=== PATIENT | female | born 1995 | race Caucasian/White ===

== ENCOUNTER 2018-05-07 15:18 | Observation (INO) ==
[2018-05-07] MEDS ORDERED: Ondansetron 4 MG/2 ML VIAL IVP ONE ×2 (15:55→20:24)
[2018-05-07] MEDS ORDERED: 0.9 % Sodium Chloride 1,000 ML IVC ONE (15:55)
[2018-05-07] MEDS ORDERED: Isovue-370 500 ML BOTTLE IVP ONE (16:03)
--- NOTE | 2018-05-07 16:09 | Emergency Department Note ---
Disposition Clinical Impression: Appendicitis Disposition: Admitted As Inpatient Condition: Good Forms: ED Satisfaction Letter, Work/School Release Time of Disposition: 18:53 General Adult HPI - General Chief complaint: ED Abdominal Pain Stated complaint: abd pain/Dizzy/back pain Time Seen by Provider: 05/07/18 15:52 Source: patient Limitations: no limitations Nursing Notes Reviewed: Yes Vital Signs Reviewed: Yes - History of Present Illness HPI Narrative: 23 year old female presnets to the ED with complaints of abdominal pain in the lower abdomen that radaites into her back and states that she has a history of endometriosis and that she has not otherwis ehad an suergies aside from the laser ablation suergies that she intermittently has. Patient is curled up in the posisiton and states she can no long vomit anymore and is now just vomtting up clear mucus fluid. PAtinet states that this has been going on since yesrterday and that it hasnt stopped. PAtient appears to have dry heaves at bedside. She denies chest pain, or blood in her urine or stool. No vaginal bleeding or discharge. No fevers, not been around anyone else that has bee sick, also no suspicious food ingestion Pain Scale: 9 - Related Data Allergies Allergy/AdvReac Type Severity Reaction Status Date / Time clindamycin AdvReac Palpitation Verified 05/07/18 15:43 s Penicillins AdvReac See Verified 05/07/18 15:43 Comments Constitutional: Denies: fever, chills, weakness, weight change Eyes: Denies: eye pain, eye discharge, vision change ENT ED: Denies: ear pain, throat pain, dental pain, hearing loss, epistaxis, congestion, dysphagia Cardiovascular: Denies: chest pain, palpitations, dyspnea on exertion, edema, syncope Respiratory: Denies: cough, dyspnea, wheezes, hemoptysis, stridor Gastrointestinal: Reports: abdominal pain, nausea, vomiting. Denies: diarrhea, constipation, hematemesis, melena, hematochezia Genitourinary: Denies: dysuria, frequency, hematuria, discharge Musculoskeletal: Denies: back pain, neck pain, arthralgia, myalgia Integumentary: Denies: rash, abrasion, lesions Neurological: Denies: headache, weakness, numbness, paresthesias, confusion, abnormal gait, vertigo Psychiatric: Denies: anxiety, depression, suicidal thoughts, homicidal thoughts, auditory hallucinations, visual hallucinations Endocrine: Denies: fatigue Hematological/Lymphatic: Denies: easy bleeding, easy bruising Allergic/Immunologic: Denies: facial swelling, urticaria Past Medical History - Past Medical History Medical history: Reports: other - Social History Smoking Status: Current some day smoker Smokeless Tobacco Status: No Alcohol use: Reports: occasionally Drug use: Reports: none Physical Exam - General Limitations: no limitations General appearance: alert, in no apparent distress - Head Head exam: atraumatic, normocephalic, normal inspection - Eye Eye exam: Present: normal appearance, PERRL, EOMI - Expanded Eye Exam Pupils: Bilateral: reactive - ENT ENT exam: normal exam, normal oropharynx, mucous membranes moist - Expanded ENT Exam External ear exam: Present: normal external inspection Mouth exam: Present: normal external inspection Teeth exam: Present: normal inspection Throat exam: Present: normal inspection - Neck Neck exam: Present: normal inspection, full ROM, trachea midline - Chest Chest inspection: Present: normal inspection, symmetric chest wall rise - Respiratory Respiratory exam: Present: normal lung sounds bilaterally - Cardiovascular Cardiovascular exam: Present: regular rate, normal rhythm, normal heart sounds - Abdominal Exam Abdominal exam: Present: soft, tenderness. Absent: Non-Tender, distention, guarding, rebound, rigidity Abdominal tenderness: Present: suprapubic, moderate - Extremities Exam Extremities exam: Present: normal inspection, full ROM. Absent: tenderness, pedal edema - Expanded Upper Extremity Exam Shoulder exam: Present: normal inspection, full ROM Arm exam: Present: normal inspection, full ROM Elbow exam: Present: normal inspection, full ROM Forearm/Wrist exam: Present: normal inspection, full ROM Hand exam: Present: normal inspection, full ROM Vascular exam: Normal: capillary refill, radial pulse - Expanded Lower Extremity Exam Hip/Pelvis exam: Present: normal inspection, full ROM Upper leg exam: Present: normal inspection, full ROM Knee exam: Present: normal inspection, full ROM Lower leg exam: Present: normal inspection, full ROM Ankle exam: Present: normal inspection, full ROM Foot/toe exam: Present: normal inspection, full ROM Neurovascular/Tendon exam: Absent: motor deficit, sensory deficit, tendon deficit - Back Exam Back exam: Present: normal inspection, full ROM. Absent: tenderness - Neurological Exam Neurological exam: Present: alert, oriented X3 - Expanded Neurological Exam Patient oriented to: Present: person, place, time Coma Scale Eye Opening: Spontaneous Coma Scale Motor Response: Obeys Commands Coma Scale Verbal Response: Oriented Coma Scale Total: 15 - Psychiatric Psychiatric exam: Present: normal affect, normal mood - Skin Skin exam: Present: warm, dry, intact, normal color Course Course Narrative: I will do labs, ABCT, and UA/preg with IVF and benadryl/zofran for therpay - Consultations Consultation #1: discusssed case with Dr. Hawkins and he will come to bedside to josh take back to the OR Time: 18:53 Vital Signs Temperature 97.8 F 05/07/18 15:41 Pulse Rate 81 05/07/18 15:41 Respiratory Rate 20 05/07/18 15:41 Blood Pressure 127/79 05/07/18 15:41 O2 Sat by Pulse Oximetry 98 05/07/18 15:41 Temperature 97.8 F 05/07/18 15:41 Pulse Rate 83 05/07/18 18:44 Respiratory Rate 15 05/07/18 18:44 Blood Pressure 131/78 05/07/18 18:44 O2 Sat by Pulse Oximetry 98 05/07/18 16:24 Oxygen Delivery Oxygen Delivery Room Air Medical Decision Making - Lab Data Result diagrams: 05/07/18 14:12 05/07/18 14:12 Lab Results 05/07/18 05/07/18 05/07/18 Range/Units 14:12 14:12 17:28 WBC 12.7 H (4.3-11.1) K/mcL RBC 4.36 (3.82-4.97) M/mcL Hgb 13.6 (11.5-15.4) g/dL Hct 40.2 (35.3-44.9) % MCV 92.2 (83.0-100.0) fL MCH 31.2 (28.0-33.3) pg MCHC 33.8 (31.6-35.5) g/dL RDW 12.3 (11.5-14.5) % Plt Count 225 (140-400) K/mcL MPV 11.8 (9.4-12.4) fL Immature Gran % 0.5 (0-4) % Seg Neutrophils % 83.2 % Lymphocytes % 11.1 % Monocytes % 4.8 % Eosinophils % 0.2 % Basophils % 0.2 % Neutrophils # 10.5 H (1.6-8.9) K/mcL Lymphocytes # 1.4 (0.6-4.6) K/mcL Monocytes # 0.6 (0.0-1.3) K/mcL Eosinophils # 0.0 (0.0-0.6) K/mcL Basophils # 0.0 (0.0-0.2) K/mcL Sodium 137 (136-145) mEq/L Potassium 3.6 (3.5-5.1) mEq/L Chloride 103 (98-107) mEq/L Carbon Dioxide 25 (23-29) mEq/L BUN 13 (6-20) mg/dL Creatinine 0.68 (0.60-1.20) mg/dL Est GFR ( Amer) > 60 (> 60) Est GFR (Non-Af Amer) > 60 (> 60) BUN/Creatinine Ratio 19 (6-26) Glucose 117 H (70-105) mg/dL Calculated Osmolality 285 (280-300) Calcium 9.6 (8.6-10.3) mg/dL Total Bilirubin 0.3 (0.3-1.0) mg/dL Direct Bilirubin 0.1 (0.0-0.2) mg/dL Indirect Bilirubin 0.2 (0.0-1.2) mg/dL AST 18 (13-39) Units/L ALT 13 (7-52) Units/L Alkaline Phosphatase 36 (34-104) Units/L Serum Total Protein 7.3 (6.4-8.9) g/dL Albumin 4.7 (3.5-5.7) g/dL Globulin 2.6 (2.4-3.5) g/dL Albumin/Globulin Ratio 1.8 (1.1-2.2) Lipase 10 L (11-82) Units/L Urine Color Yellow (Yellow) Urine Clarity Cloudy A (Clear) Urine pH 8.0 (5.0-8.0) pH Units Ur Specific [place] 1.024 (1.010-1.025) Urine Protein 30 H (Neg-Trace) mg/dL Urine Glucose (UA) Normal (Normal) mg/dL Urine Ketones Trace H (Negative) mg/dL Urine Blood Negative (Negative) Urine Nitrite Negative (Negative) Urine Bilirubin Negative (Negative) Urine Urobilinogen Normal (Normal) mg/dL Ur Leukocyte Esterase Negative (Negative) Urine Microscopic RBC 0-3 (0-3) per hpf Urine Microscopic WBC 0-3 (0-3) per hpf Ur Squamous Epith Cells Many H (None-Few) per lpf Urine Bacteria Few (None-Few) per hpf Hyaline Casts None Seen (None-Few) per lpf Ur Culture Indicated? NO (NO) Urine Test (Negative) 05/07/18 Range/Units 17:28 WBC (4.3-11.1) K/mcL RBC (3.82-4.97) M/mcL Hgb (11.5-15.4) g/dL Hct (35.3-44.9) % MCV (83.0-100.0) fL MCH (28.0-33.3) pg MCHC (31.6-35.5) g/dL RDW (11.5-14.5) % Plt Count (140-400) K/mcL MPV (9.4-12.4) fL Immature Gran % (0-4) % Seg Neutrophils % % Lymphocytes % % Monocytes % % Eosinophils % % Basophils % % Neutrophils # (1.6-8.9) K/mcL Lymphocytes # (0.6-4.6) K/mcL Monocytes # (0.0-1.3) K/mcL Eosinophils # (0.0-0.6) K/mcL Basophils # (0.0-0.2) K/mcL Sodium (136-145) mEq/L Potassium (3.5-5.1) mEq/L Chloride (98-107) mEq/L Carbon Dioxide (23-29) mEq/L BUN (6-20) mg/dL Creatinine (0.60-1.20) mg/dL Est GFR ( Amer) (> 60) Est GFR (Non-Af Amer) (> 60) BUN/Creatinine Ratio (6-26) Glucose (70-105) mg/dL Calculated Osmolality (280-300) Calcium (8.6-10.3) mg/dL Total Bilirubin (0.3-1.0) mg/dL Direct Bilirubin (0.0-0.2) mg/dL Indirect Bilirubin (0.0-1.2) mg/dL AST (13-39) Units/L ALT (7-52) Units/L Alkaline Phosphatase (34-104) Units/L Serum Total Protein (6.4-8.9) g/dL Albumin (3.5-5.7) g/dL Globulin (2.4-3.5) g/dL Albumin/Globulin Ratio (1.1-2.2) Lipase (11-82) Units/L Urine Color (Yellow) Urine Clarity (Clear) Urine pH (5.0-8.0) pH Units Ur Specific [place] (1.010-1.025) Urine Protein (Neg-Trace) mg/dL Urine Glucose (UA) (Normal) mg/dL Urine Ketones (Negative) mg/dL Urine Blood (Negative) Urine Nitrite (Negative) Urine Bilirubin (Negative) Urine Urobilinogen (Normal) mg/dL Ur Leukocyte Esterase (Negative) Urine Microscopic RBC (0-3) per hpf Urine Microscopic WBC (0-3) per hpf Ur Squamous Epith Cells (None-Few) per lpf Urine Bacteria (None-Few) per hpf Hyaline Casts (None-Few) per lpf Ur Culture Indicated? (NO) Urine Test Negative (Negative)
[2018-05-07 16:46] LABS: Basophils % 0.2 %; Eosinophils % 0.2 %; Hematocrit 40.2 % (35.3-44.9); Hemoglobin 13.6 g/dL (11.5-15.4); Immature Granulocytes % 0.5 % (0-4); Lymphocytes # 1.4 K/mcL (0.6-4.6); Lymphocytes % 11.1 %; Mean Corpuscular HGB Conc 33.8 g/dL (31.6-35.5); Mean Corpuscular Hemoglobin 31.2 pg (28.0-33.3); Mean Corpuscular Volume 92.2 fL (83.0-100.0); Mean Platelet Volume 11.8 fL (9.4-12.4); Monocytes # 0.6 K/mcL (0.0-1.3); Monocytes % 4.8 %; Neutrophils # 10.5 K/mcL (1.6-8.9); Platelet Count 225 K/mcL (140-400); Red Blood Count 4.36 M/mcL (3.82-4.97); Red Cell Distribution Width 12.3 % (11.5-14.5); Segmented Neutrophils % 83.2 %
[2018-05-07 17:02] LABS: Alanine Aminotransferase 13 Units/L (7-52); Albumin 4.7 g/dL (3.5-5.7); Albumin/Globulin Ratio 1.8 (1.1-2.2); Alkaline Phosphatase 36 Units/L (34-104); Aspartate Amino Transferase 18 Units/L (13-39); BUN/Creatinine Ratio 19 (6-26); Bilirubin,Direct 0.1 mg/dL (0.0-0.2); Bilirubin,Indirect 0.2 mg/dL (0.0-1.2); Bilirubin,Total 0.3 mg/dL (0.3-1.0); Blood Urea Nitrogen 13 mg/dL (6-20); Calcium 9.6 mg/dL (8.6-10.3); Carbon Dioxide 25 mEq/L (23-29); Chloride 103 mEq/L (98-107); Globulin 2.6 g/dL (2.4-3.5); Glucose 117 mg/dL (70-105); Lipase 10 Units/L (11-82); Osmolality,Calculated 285 (280-300); Potassium 3.6 mEq/L (3.5-5.1); Sodium 137 mEq/L (136-145); Total Protein 7.3 g/dL (6.4-8.9); eGFR For Non-African Americans > 60 (> 60)
[2018-05-07] MEDS ORDERED: *HR* FentaNYL (PF) 100 MCG/2 ML VIAL IVP ONE (17:36)
[2018-05-07 17:55] LABS: Bilirubin,Urine Negative (Negative); Blood,Urine Negative (Negative); Clarity,Urine Cloudy (Clear); Color,Urine Yellow (Yellow); Glucose,Urine (UA) Normal (Normal); Ketones,Urine Trace mg/dL (Negative); Leukocyte Esterase,Urine Negative (Negative); Nitrite,Urine Negative (Negative); Protein,Urine 30 mg/dL (Neg-Trace); Specific Gravity,Urine 1.024 (1.010-1.025); Urobilinogen,Urine Normal (Normal)
[2018-05-07 18:01] LABS: Bacteria,Urine Few per hpf (None-Few); Hyaline Casts,Urine None Seen per lpf (None-Few); RBC,Urine 0-3 per hpf (0-3); Squamous Epithelial Cell,Urine Many per lpf (None-Few); WBC,Urine 0-3 per hpf (0-3)
[2018-05-07] MEDS ORDERED: *HR* Morphine 2 MG/ML SYRINGE IVP ONE ×2 (19:08→20:15)
--- NOTE | 2018-05-07 19:56 | General Surg History&Physical ---
Date of Encounter: 05/07/18 Time of Encounter: 19:40 Assessment and Plan (1) Appendicitis Current Visit: Yes Status: Acute The assessment and plan as outlined above was discussed with the patient and/or family members who expressed understanding and agreement. All questions were answered. Acute appendicitis with leukocytosis and abnormal CAT scan. We will plan laparoscopic appendectomy later this evening. I discussed the risks and benefits with the patient and her family. She understands and wishes to proceed. Qualifiers: Appendicitis type: acute appendicitis Acute appendicitis type: with localized peritonitis Appendicitis gangrene presence: unspecified whether gangrene present Appendicitis perforation presence: without perforation Appendicitis abscess presence: without abscess Qualified Code(s): K35.30 - Acute appendicitis with localized peritonitis, without perforation or gangrene History of Present Illness Chief complaint: Abdominal pain HPI: Ms. Concepcion is a 23 year old female Who is had abdominal pain last night and today. This started as nausea and vomiting was centralized abdominal pain and then localized right lower quadrant. She has prominent anorexia. She has been treated with pain medicine prior to evaluation. The patient and her family helped shared to give me the history. She is quite concerned that she has previously had 4 laparoscopic procedures for endometriosis and endometrial scarring I personally reviewed CAT scan of the abdomen. She has several appendicoliths a thickened appendix wall and periappendiceal inflammation consistent with acute appendicitis. Past Med Surg Social Fam HX - Past Medical History Medical history: other Additional medical history: endometreosis - Past Surgical History Surgical History: other (Multiple laparoscopic procedures for endometriosis) Additional surgical history: laser sx for endometreosis - Social History Smoking Status: Current some day smoker Smokeless Tobacco Status: No Alcohol use: occasionally Drug use: none Medications and Allergies Dicyclomine [Bentyl] 10 mg PO QID PRN 05/07/18 [History] Loratadine [Allergy Relief] 10 mg PO DAILY 05/07/18 [History] Multivits Min/Iron/FA/Herb#186 [Hair, Skin & Nails Caplet] 1 each PO DAILY 05/07/18 [History] Norethindrone-E.estradiol-Iron [Junel Fe 1 mg-20 Mcg Tablet] 1 each PO DAILY 05/07/18 [History] Allergy/AdvReac Type Severity Reaction Status Date / Time clindamycin AdvReac Palpitation Verified 05/07/18 15:43 s Penicillins AdvReac See Verified 05/07/18 15:43 Comments Review of Systems All systems PM: The remainder of the systems were reviewed and are negative General Surgery Exam Initial Vital Signs Temp Pulse Resp BP Pulse Ox 97.8 F 81 20 127/79 98 05/07/18 15:41 05/07/18 15:41 05/07/18 15:41 05/07/18 15:41 05/07/18 15:41 - General physical appearance well developed, well nourished, moderate distress, moderate pain - Respiratory normal expansion, normal respiratory effort, clear to percussion, clear to auscultation - Cardiovascular Cardiovascular exam: Present: RRR, no murmurs/rubs/gallops - Abdomen Abdomen general surgery: Present: tender, guarding, rebound Abdominal Tenderness: Present: RLQ - Neurologic Present: CN 2-12 grossly intact, normal coordination, normal sensation - Psychiatric Psychiatric general surgery: Present: appropriate, oriented to person, oriented to place, oriented to time, speech is normal, memory intact Results - Labs 05/07/18 14:12 05/07/18 14:12 Abnormal lab results WBC 12.7 K/mcL (4.3-11.1) H 05/07/18 14:12 Neutrophils # 10.5 K/mcL (1.6-8.9) H 05/07/18 14:12 Glucose 117 mg/dL (70-105) H 05/07/18 14:12 Lipase 10 Units/L (11-82) L 05/07/18 14:12 Urine Clarity Cloudy (Clear) A 05/07/18 17:28 Urine Protein 30 mg/dL (Neg-Trace) H 05/07/18 17:28 Urine Ketones Trace mg/dL (Negative) H 05/07/18 17:28 Ur Squamous Epith Cells Many per lpf (None-Few) H 05/07/18 17:28 Diabetes panel 05/07/18 Range/Units 14:12 Sodium 137 (136-145) mEq/L Potassium 3.6 (3.5-5.1) mEq/L Chloride 103 (98-107) mEq/L Carbon Dioxide 25 (23-29) mEq/L BUN 13 (6-20) mg/dL Creatinine 0.68 (0.60-1.20) mg/dL Glucose 117 H (70-105) mg/dL Calcium 9.6 (8.6-10.3) mg/dL AST 18 (13-39) Units/L ALT 13 (7-52) Units/L Alkaline Phosphatase 36 (34-104) Units/L Albumin 4.7 (3.5-5.7) g/dL Calcium panel 05/07/18 Range/Units 14:12 Calcium 9.6 (8.6-10.3) mg/dL Albumin 4.7 (3.5-5.7) g/dL Pituitary panel 05/07/18 Range/Units 14:12 Sodium 137 (136-145) mEq/L Potassium 3.6 (3.5-5.1) mEq/L Chloride 103 (98-107) mEq/L Carbon Dioxide 25 (23-29) mEq/L BUN 13 (6-20) mg/dL Creatinine 0.68 (0.60-1.20) mg/dL Glucose 117 H (70-105) mg/dL Calcium 9.6 (8.6-10.3) mg/dL Adrenal panel 05/07/18 Range/Units 14:12 Sodium 137 (136-145) mEq/L Potassium 3.6 (3.5-5.1) mEq/L Chloride 103 (98-107) mEq/L Carbon Dioxide 25 (23-29) mEq/L BUN 13 (6-20) mg/dL Creatinine 0.68 (0.60-1.20) mg/dL Glucose 117 H (70-105) mg/dL Calcium 9.6 (8.6-10.3) mg/dL Total Bilirubin 0.3 (0.3-1.0) mg/dL AST 18 (13-39) Units/L ALT 13 (7-52) Units/L Alkaline Phosphatase 36 (34-104) Units/L Albumin 4.7 (3.5-5.7) g/dL All other labs normal. - Imaging CT scan - abdomen: image reviewed (I personally reviewed the CAT scan of the abdomen. She does have several appendicoliths and appendix wall thickening and periappendiceal inflammation. Findings could conceivably be from endometriosis, however, this clinical setting [place] of acute appendicitis is made)
[2018-05-07] MEDS ORDERED: *HR* Cisatracurium 10 MG/5 ML VIAL IV ONE (20:10)
[2018-05-07] MEDS ORDERED: Acetaminophen IV 1,000 MG/100 ML INFUS..BTL ONE (20:11)
[2018-05-07] MEDS ORDERED: Dexamethasone 4 MG/ML VIAL ONE (20:12)
[2018-05-07] MEDS ORDERED: Lidocaine -MPF 2% 2 ML VIAL ONE (20:12)
[2018-05-07] MEDS ORDERED: *HR* Succinylcholine 200 MG/10 ML VIAL IVP ONE (20:12)
[2018-05-07] MEDS ORDERED: *HR* FentaNYL (PF) 100 MCG/2 ML VIAL ONE (20:12)
[2018-05-07] MEDS ORDERED: Ondansetron 4 MG/2 ML VIAL ONE (20:12)
[2018-05-07] MEDS ORDERED: *HR* Midazolam HCl 2 MG/2 ML VIAL ONE (20:12)
[2018-05-07] MEDS ORDERED: *HR* Propofol 200 MG/20 ML VIAL IVP ONE (20:12)
[2018-05-07] MEDS ORDERED: CefOXitin 2,000 MG VIAL ONE (20:16)
[2018-05-07] MEDS ORDERED: CefOXitin 1,000 MG VIAL ONE (20:23)
[2018-05-07] MEDS ORDERED: *HR* HYDROmorphone (PF) 1 MG/ML SYRINGE IVP PRN (20:24)
[2018-05-07] MEDS ORDERED: *HR* OxyCODONE Immed Rel 5 MG TABLET PO PRN (20:24)
--- NOTE | 2018-05-07 20:24 | Anesthesia Evaluation PreOp ---
Date of Encounter: 05/07/18 Time of Encounter: 20:23 - Past History Planned Operation: Laparoscopic Appendectomy Cardiac History: Denies any Significant Hx Pulmonary History: Smoker (2 years) THERAPIST SPEECH History: Denies Any Significant HX Other Medical History: Denies Any Significant HX Anesthesia History: No Prior Anesthetic Complications, Past Anesthesia Test: Negative (05/07/2018) Alcohol Use: occasionally Drug use: none Medications and Allergies Dicyclomine [Bentyl] 10 mg PO QID PRN 05/07/18 [History] Loratadine [Allergy Relief] 10 mg PO DAILY 05/07/18 [History] Multivits Min/Iron/FA/Herb#186 [Hair, Skin & Nails Caplet] 1 each PO DAILY 05/07/18 [History] Norethindrone-E.estradiol-Iron [Junel Fe 1 mg-20 Mcg Tablet] 1 each PO DAILY 05/07/18 [History] Allergy/AdvReac Type Severity Reaction Status Date / Time clindamycin AdvReac Palpitation Verified 05/07/18 15:43 s Penicillins AdvReac See Verified 05/07/18 15:43 Comments - Meds/Allergy Pre-op Review Medications Reviewed: Yes Allergies Reviewed: Yes Beta Blockers on Current Med List: No Anesthesia Results - Labs 05/07/18 14:12 05/07/18 14:12 Anesthesia Exam Vital Signs/O2 Sat, Most Current Temp Pulse Resp BP Pulse Ox 97.8 F 83 19 114/68 100 05/07/18 15:41 05/07/18 19:17 05/07/18 19:17 05/07/18 19:17 05/07/18 19:17 Height: 5'7''/1.7m Weight: 168 lbs/76 kg NPO (# of Hours): 8 Pain Scale: 5 (abdomen) Pain Scale Used: Numeric (1 - 10) - HEENT Pupil (Motor): EOMI Mallampati: II Teeth: Normal Oral Opening: Greater than 3 - THERAPIST SPEECH LOC: Oriented THERAPIST SPEECH Motor: Normal RUE, Normal LUE, Normal RLE, Normal LLE, Normal Face THERAPIST SPEECH Sensory: Normal: RUE, LUE, RLE, LLE, Face - Cardiac Rhythm: Regular Murmur: None - Pulmonary Breath Sounds: bilateral Clear Respiratory Effort: Symmetrical Anesthesia Assess/Plan ASA Score: 2 Level of consciousness: Cooperative, Oriented, Tranquil Anesthetic Plan: General Monitoring Plan: Standard Monitors Recovery Plan: PACU
--- NOTE | 2018-05-07 21:36 | Operative Note ---
Date of procedure: 05/07/18 Pre-op diagnosis: Acute appendicitis Post-op diagnosis: same Procedure: Laparoscopic appendectomy Anesthesia: KATERINA Surgeon: David Hawkins Was there an blood and plasma laboratory assistant present: No Estimated blood loss (cc): 10 Specimen: Appendix Condition: stable Disposition: PACU Procedure in Detail: After informed consent the patient was taken to the major operative suite placed in the supine position given adequate general endotracheal anesthesia. The abdomen is prepped and draped in sterile fashion utilizing ChloraPrep and standard draping techniques. Timeout was taken and the patient is identified. Made a vertical midline incision below the umbilicus and dissected down the level of fascia. 2 traction stitches of 0 Vicryl placed. The abdomen was entered visually. I placed a Hidalgo trocar and insufflated the abdomen to 15 mmHg pressure CO2. I placed a 5 mm trocar in the suprapubic area and it 12 mm trocar in the right upper quadrant. There was inflammatory fluid in the pelvis and in the right gutter. The appendix was inflamed and appeared to be extracte d. There is no visible pus. I opened a window between the mesial appendix and the base the cecum. A gastrointestinal load on the laparoscopic stapler was used to divide the base the cecum. A laparoscopic load of vascular davis was used to divide the mesoappendix. The appendix was removed in a specimen bag. I then suctioned out all the inflammatory fluid and irrigated the pelvis and right gutter as well as operative sites with copious amounts of antibiotic containing solution. I elevated the uterus but because of the patient's full bladder I could not fully inspect the pelvis. I did not see any active endometriosis. All staple lines were intact. There was no bleeding. All trochars were removed. Fascia was closed with 0 Vicryl. The skin was closed with interrupted 2-0 Vicryl on the subcutaneous layer and 4-0 Vicryl in the subcuticular layer.
--- NOTE | 2018-05-07 22:05 | Anesthesia Evaluation Post Op ---
Date of Encounter: 05/07/18 Time of Encounter: 22:04 - Vital Signs Vital Signs: Vital Signs/O2 Sat, Most Current Temp Pulse Resp BP Pulse Ox 97.9 F 97 16 112/68 100 05/07/18 21:39 05/07/18 21:59 05/07/18 21:59 05/07/18 21:59 05/07/18 21:59 - Lungs Lungs: Clear Ascult./Percussion - Airway Airway: Non-obstructed - Cardiovascular Regular Rate - Mental Status Mental Status: Alert & Oriented, Answers Appropriately - Pain Pain Scale: 2 Pain Scale used: Numeric (1 - 10) - Nausea Vomiting Nausea Vomiting: Not Present - Hydration Hydration: Ice chips, Has not voided - Discharge PostOp Status: Transfer Patient to floor
[2018-05-07] MEDS ORDERED: 0.9 % Sodium Chloride 1,000 ML IVC SCH (22:41)
[2018-05-07] MEDS ORDERED: *HR* OxyCODONE/APAP 5/325 TABLET PO PRN (22:41)
[2018-05-07] MEDS ORDERED: Ondansetron 4 MG/2 ML VIAL IVP PRN (22:41)
[2018-05-08] MEDS: cefOXitin 2,000 MG in 0.9 % Sodium Chloride Mini Bag 100 ML IVP SCH ×2 (00:34→08:46)
[2018-05-08] MEDS: OXYCODONE Oral CONC 10 MG/0.5 ML ORAL.SYG SL PRN ×2 (00:35→08:04)
[2018-05-08 04:16] LABS: Hematocrit 37.8 % (35.3-44.9); Hemoglobin 12.8 g/dL (11.5-15.4); Immature Granulocytes % 0.3 % (0-4); Lymphocytes # 0.8 K/mcL (0.6-4.6); Lymphocytes % 6.8 %; Mean Corpuscular HGB Conc 33.9 g/dL (31.6-35.5); Mean Corpuscular Hemoglobin 31.1 pg (28.0-33.3); Mean Platelet Volume 11.7 fL (9.4-12.4); Monocytes # 0.2 K/mcL (0.0-1.3); Monocytes % 1.7 %; Neutrophils # 10.6 K/mcL (1.6-8.9); Platelet Count 232 K/mcL (140-400); Red Blood Count 4.11 M/mcL (3.82-4.97); Red Cell Distribution Width 12.5 % (11.5-14.5); Segmented Neutrophils % 91.2 %
[2018-05-08 04:32] LABS: BUN/Creatinine Ratio 11 (6-26); Blood Urea Nitrogen 8 mg/dL (6-20); Calcium 8.9 mg/dL (8.6-10.3); Carbon Dioxide 25 mEq/L (23-29); Chloride 104 mEq/L (98-107); Glucose 147 mg/dL (70-105); Osmolality,Calculated 283 (280-300); Potassium 3.9 mEq/L (3.5-5.1); Sodium 136 mEq/L (136-145); eGFR For Non-African Americans > 60 (> 60)
[2018-05-08 07:17] VITALS: BP 103/62
[2018-05-08] MEDS ORDERED: cefOXitin 2,000 MG in Water for inj. (sterile) 20 ML 20 ML IVP ONE (08:20)
--- NOTE | 2018-05-08 08:29 | Discharge Summary ---
<Odilia Aayla - Last Filed: 05/08/18 10:18> Orders not resulted at time of discharge: Pending orders 05/07/18 21:25 Surgical Pathology [PTH] Routine Date of Encounter: 05/08/18 Time of Encounter: 10:26 - Discharge Diagnosis (1) Appendicitis Priority: Primary Status: Resolved Qualifiers: Appendicitis type: acute appendicitis Acute appendicitis type: with localized peritonitis Appendicitis gangrene presence: unspecified whether gangrene present Appendicitis perforation presence: without perforation Appendicitis abscess presence: without abscess Qualified Code(s): K35.30 - Acute appendicitis with localized peritonitis, without perforation or gangrene General Surgery Exam Initial Vital Signs Temp Pulse Resp BP Pulse Ox 97.8 F 81 20 127/79 98 05/07/18 15:41 05/07/18 15:41 05/07/18 15:41 05/07/18 15:41 05/07/18 15:41 Vital Signs Temp Pulse Resp BP Pulse Ox 05/08/18 06:56 98.4 F 77 16 103/62 97 05/08/18 03:54 98.7 F 84 14 95/59 95 05/08/18 00:34 98.3 F 92 16 107/63 96 05/07/18 23:54 98.3 F 88 16 117/72 96 05/07/18 23:39 97.9 F 90 16 112/71 97 05/07/18 23:24 98.0 F 87 16 120/74 97 05/07/18 23:09 98.0 F 86 16 116/72 97 05/07/18 22:09 98.9 F 97 16 126/76 100 05/07/18 21:59 97 16 112/68 100 05/07/18 21:49 82 16 118/71 99 05/07/18 21:39 97.9 F 92 16 121/67 99 05/07/18 20:34 89 16 116/82 100 05/07/18 19:17 83 19 114/68 100 05/07/18 18:44 83 15 131/78 05/07/18 16:24 89 16 121/68 98 05/07/18 15:41 97.8 F 81 20 127/79 98 Intake and Output 05/07/18 05/08/18 05/08/18 23:59 07:59 15:59 Intake Total 1000 / 1000 580 / 580 Output Total 5 / 1650 / 1650 Balance 995 / 995 -1070 / -1070 Intake: IV Fluids 1000 / 1000 100 / 100 0.9 % Sodium Chloride 1,000 ML 1000 / 1000 @ 999 mls/hr IVC .Q1H1M ONE Rx# :[id number] Mefoxin 2,000 MG In 0.9 % 100 / 100 Sodium Chloride (Mini-Bag +) 100 ML @ 1500 mls/hr IVP Q8HR AUDREY Rx#:[id number] Oral 0 / 0 480 / 480 Output: Urine 0 / 0 1650 / 1650 Estimated Blood Loss 5 / Other: # Voids 1 VITAL SIGNS: Reviewed. See [facility] GENERAL: In no apparent distress. HEENT: Normocephalic, atraumatic, pupils are equal and reactive, extraocular motions intact, oropharynx is pink and moist, there is no neck adenopathy or JVD noted. CHEST/RESPIRATORY: The thorax is free from signs of trauma. Lung sounds: clear to auscultation, normal respiratory effort CARDIAC: Regular rate and rhythm. Normal S1 and S2, without murmurs, gallops, or rubs. VASCULAR: No Edema. 2+ peripheral pulses. ABDOMEN: soft, expected postoperative tenderness, active bowel sounds INCISION: Surgical incision is clean, dry, and intact. There are no signs of cellulitis or infection noted. MUSCULOSKELETAL: Good range of motion of all major joints. Extremities without clubbing, cyanosis or edema. NEUROLOGIC EXAM: Alert and oriented x 3. Speech normal. Follows commands. PSYCHIATRIC: Mood normal. SKIN: No rash or lesions. - Hospital Course Hospital course: Ms. Concepcion is a 23 year old female who presented on 05/07/2018 and was found to have acute appendicitis. She underwent an uncomplicated laparoscopic appendectomy on the same date by Dr. Hawkins. Her hospital course has been uncomplicated. She is ambulating avoiding without difficulty, tolerating a diet without nausea or vomiting, vital signs are stable, and she is afebrile. We wi ll begin discharge planning to home with a follow-up in office in approximately 2 weeks. - Time Spent with Patient Total time spent providing and/or coordinating discharge services: - Discharge Medications Prescriptions: New Ondansetron ODT [Zofran ODT] 4 mg SL Q4HR PRN #15 tab.rapdis PRN Reason: Postsurgical nausea Docusate Sodium [Colace] 100 mg PO BID PRN #30 capsule PRN Reason: Contstipation HYDROcodone/Acet 5/325 mg [[place] 5-325 mg] 1 tab PO Q6H PRN 5 Days #20 tab PRN Reason: Pain RX: Ibuprofen 800 mg PO Q8H PRN #30 tablet PRN Reason: Postsurgical pain Continue RX: Norethindrone-E.estradiol-Iron [Junel Fe 1 mg-20 Mcg Tablet] 1 each PO DAILY RX: Dicyclomine [Bentyl] 10 mg PO QID PRN PRN Reason: abdominal pain RX: Multivits Min/Iron/FA/Herb#186 [Hair, Skin and Nails Caplet] 1 each PO DAILY RX: Loratadine [Allergy Relief] 10 mg PO DAILY Home Medications: RX: Dicyclomine [Bentyl] 10 mg PO QID PRN 05/07/18 [History] RX: Loratadine [Allergy Relief] 10 mg PO DAILY 05/07/18 [History] RX: Multivits Min/Iron/FA/Herb#186 [Hair, Skin and Nails Caplet] 1 each PO DAILY 05/07/18 [History] RX: Norethindrone-E.estradiol-Iron [Julyl Fe 1 mg-20 Mcg Tablet] 1 each PO DAILY 05/07/18 [History] Docusate Sodium [Colace] 100 mg PO BID PRN #30 capsule 05/08/18 [Rx] HYDROcodone/Acet 5/325 mg [[place] 5-325 mg] 1 tab PO Q6H PRN 5 Days #20 tab 05/08/18 [Rx] Ondansetron ODT [Zofran ODT] 4 mg SL Q4HR PRN #15 tab.rapdis 05/08/18 [Rx] RX: Ibuprofen 800 mg PO Q8H PRN #30 tablet 05/08/18 [Rx] Allergies/Adverse Reactions: Allergy/AdvReac Type Severity Reaction Status Date / Time clindamycin AdvReac Palpitation Verified 05/07/18 15:43 s Penicillins AdvReac See Verified 05/07/18 15:43 Comments Date of admission: 05/07/18 20:29 Primary care physician: Maria Ines Soria CNP Consults: 05/07/18 18:48 Consult to Surgery [CONS] Stat Consulting Provider: [facility] Reason for Consult: appendicitis Time Notified: 18:48 Call Completed: Yes Discharging clinician: David Hawkins (Glenn Ayala, CAROLYN) Anticipated date of discharge: 05/08/18 Labs on day of discharge: Labs from last 24 hours 05/08/18 05/08/18 05/07/18 03:37 03:37 17:28 WBC 11.6 H RBC 4.11 Hgb 12.8 Hct 37.8 MCV 92.0 MCH 31.1 MCHC 33.9 RDW 12.5 Plt Count 232 MPV 11.7 Immature Gran % 0.3 Seg Neutrophils % 91.2 Lymphocytes % 6.8 Monocytes % 1.7 Eosinophils % 0.0 Basophils % 0.0 Neutrophils # 10.6 H Lymphocytes # 0.8 Monocytes # 0.2 Eosinophils # 0.0 Basophils # 0.0 Sodium 136 Potassium 3.9 Chloride 104 Carbon Dioxide 25 BUN 8 Creatinine 0.70 Est GFR ( Amer) > 60 Est GFR (Non-Af Amer) > 60 BUN/Creatinine Ratio 11 Glucose 147 H Calculated Osmolality 283 Calcium 8.9 Total Bilirubin Direct Bilirubin Indirect Bilirubin AST ALT Alkaline Phosphatase Serum Total Protein Albumin Globulin Albumin/Globulin Ratio Lipase Urine Color Urine Clarity Urine pH Ur Specific Summers Urine Protein Urine Glucose (UA) Urine Ketones Urine Blood Urine Nitrite Urine Bilirubin Urine Urobilinogen Ur Leukocyte Esterase Urine Microscopic RBC Urine Microscopic WBC Ur Squamous Epith Cells Urine Bacteria Hyaline Casts Ur Culture Indicated? Urine Test Negative 05/07/18 05/07/18 05/07/18 17:28 14:12 14:12 WBC 12.7 H RBC 4.36 Hgb 13.6 Hct 40.2 MCV 92.2 MCH 31.2 MCHC 33.8 RDW 12.3 Plt Count 225 MPV 11.8 Immature Gran % 0.5 Seg Neutrophils % 83.2 Lymphocytes % 11.1 Monocytes % 4.8 Eosinophils % 0.2 Basophils % 0.2 Neutrophils # 10.5 H Lymphocytes # 1.4 Monocytes # 0.6 Eosinophils # 0.0 Basophils # 0.0 Sodium 137 Potassium 3.6 Chloride 103 Carbon Dioxide 25 BUN 13 Creatinine 0.68 Est GFR ( Amer) > 60 Est GFR (Non-Af Amer) > 60 BUN/Creatinine Ratio 19 Glucose 117 H Calculated Osmolality 285 Calcium 9.6 Total Bilirubin 0.3 Direct Bilirubin 0.1 Indirect Bilirubin 0.2 AST 18 ALT 13 Alkaline Phosphatase 36 Serum Total Protein 7.3 Albumin 4.7 Globulin 2.6 Albumin/Globulin Ratio 1.8 Lipase 10 L Urine Color Yellow Urine Clarity Cloudy A Urine pH 8.0 Ur Specific Summers 1.024 Urine Protein 30 H Urine Glucose (UA) Normal Urine Ketones Trace H Urine Blood Negative Urine Nitrite Negative Urine Bilirubin Negative Urine Urobilinogen Normal Ur Leukocyte Esterase Negative Urine Microscopic RBC 0-3 Urine Microscopic WBC 0-3 Ur Squamous Epith Cells Many H Urine Bacteria Few Hyaline Casts None Seen Ur Culture Indicated? NO Urine Test - Impressions ITS Impressions Abdomen/Pelvis CT 05/07/18 16:03 IMPRESSION: Acute appendicitis along with a 10 mm appendicolith. No evidence of perforation or abscess. D/ / 05/07/2018 18:39:31 Michael Lindsey MD / alec Interpreting Provider: Michael Lindsey MD - Patient Status Disposition: Home, Self-Care Condition: Good Functional capacity at discharge: independent ambulation Overall status at discharge: patient is progressing back to baseline - Discharge Instructions Instructions: Hydrocodone/Acetaminophen (By mouth), Ibuprofen (By mouth), Laxative, Stool Softeners (By mouth), Ondansetron (By mouth), Laparoscopic Appendectomy (DC) Follow Up With: Maria Ines Soria CNP [Primary Care Provider] - Odilia Ayala CNP [Advanced Practice Nurse] - 05/23/18 4:00 pm Forms: Inpatient Work/School Release Additional Instructions: General Surgical Discharge Instructions 1. No pushing, pulling, or lifting greater than 15 lbs for 2 weeks (depending upon procedure). 2. You may shower beginning today, but no tub baths, soaking, or swimming for 2 weeks. 3. You may resume driving when you are off narcotics and are safe to react in a car. 4. Take ibuprofen every 8 hours for discomfort. If this does not relieve discomfort, you may take the as needed [place]. Take narcotics as directed. Do not take more narcotics then directed and do not share your narcotics with any other person. Do not drink alcohol while on narcotics. 5. Take stool softeners (Colace) or a water based laxative (Miralax) while taking narcotics. You may hold for loose stools. 6. Report any fevers greater than 100.5F, increase abdominal discomfort, drainage that looks like pus, increased redness or pain at the surgical site, or any vomiting. 7. Report any pain in the calves, shortness of breath, or rapid heartbeat. 8. Follow-up in the office as directed. 9. If you were prescribed antibiotics, do not stop them without talking to your provider. - Diet and Activity Activity: increase activity as tolerated Diet: advance to your usual diet <David Hawkins - Last Filed: 05/09/18 10:35> Orders not resulted at time of discharge: Pending orders 05/07/18 21:25 Surgical Pathology [PTH] Routine Date of Encounter: 05/08/18 - Discharge Diagnosis (1) Appendicitis Status: Resolved Qualifiers: Appendicitis type: acute appendicitis Acute appendicitis type: with localized peritonitis Appendicitis gangrene presence: unspecified whether gangrene present Appendicitis perforation presence: without perforation Appendicitis abscess presence: without abscess Qualified Code(s): K35.30 - Acute appendicitis with localized peritonitis, without perforation or gangrene General Surgery Exam Initial Vital Signs Temp Pulse Resp BP Pulse Ox 97.8 F 81 20 127/79 98 05/07/18 15:41 05/07/18 15:41 05/07/18 15:41 05/07/18 15:41 05/07/18 15:41 - Hospital Course Hospital course: Ms. Concepcion is a 23 year old female - Time Spent with Patient Total time spent providing and/or coordinating discharge services: Date of admission: 05/07/18 20:29 Primary care physician: Maria Ines Soria CNP Consults: 05/07/18 18:48 Consult to Surgery [CONS] Stat Consulting Provider: [facility] Reason for Consult: appendicitis Time Notified: 18:48 Call Completed: Yes - Impressions ITS Impressions Abdomen/Pelvis CT 05/07/18 16:03 IMPRESSION: Acute appendicitis along with a 10 mm appendicolith. No evidence of perforation or abscess. D/ / 05/07/2018 18:39:31 Michael Lindsey MD / alec Interpreting Provider: Michael Lindsey MD - Attending Attestation I have personally performed a face to face evaluation on this patient. I have reviewed and agree with the care plan. History and Exam by me shows: The patient is seen and evaluated on morning rounds after laparoscopic appendectomy. She is doing quite well after surgery. We will plan discharge after completing her postoperative antibiotics. Follow-up one to 2 weeks David Hawkins MD FACS
[2018-05-08] MEDS ORDERED: Ibuprofen 800 MG TABLET PO ONE (10:26)
== END 2018-05-08 11:46 | disposition home or self-care (01) ==
LOC: EMEROOARM 15:18 → 3ANU 15:18
PROVIDERS: ADMIT Surgery; ATTEND Surgery